=== PATIENT | female | born 1985 | race African-American/Black ===

== ENCOUNTER 2016-11-13 16:59 | Emergency (ER) | payer OTHER | END 2016-11-13 17:01 | disposition home or self-care (01) | LOC: ER 16:59 | PROC: 0HQ1XZZ Repair Face Skin, External Approach (ICD-10-PCS; principal; 2016-11-13) | DX: S01.81XA Laceration without foreign body of other part of head, initial encounter (principal); W45.8XXA Other foreign body or object entering through skin, initial encounter | CPT/HCPCS: 90471; 90714; 92950; 99283; A9270-GY ==

== ENCOUNTER 2016-11-18 21:23 | Emergency (ER) | payer OTHER | END 2016-11-18 21:26 | disposition home or self-care (01) | LOC: ER 21:23 | DX: S01.81XD Laceration without foreign body of other part of head, subsequent encounter (principal); Y28.8XXD Contact with other sharp object, undetermined intent, subsequent encounter | CPT/HCPCS: 99282 ==